=== PATIENT | male | born 1970 | race Two or more races ===

== ENCOUNTER 2019-08-29 08:28 | Day surgery (SDC) | payer OTHER | END 2019-08-29 12:40 | disposition home or self-care (01) | LOC: AMB-ENDOS 08:28 | DX: D12.0 Benign neoplasm of cecum (principal); D12.3 Benign neoplasm of transverse colon; D12.4 Benign neoplasm of descending colon; D12.5 Benign neoplasm of sigmoid colon; Z12.11 Encounter for screening for malignant neoplasm of colon ==